=== PATIENT | male | born 1955 | race African-American/Black ===

== ENCOUNTER 2018-11-18 21:14 | Emergency (ER) | payer MEDICARE ==
[2018-11-18] MEDS ORDERED: BUFFERED LIDOCAINE 10 ML SYRINGE SUBQ STA (21:25)
[2018-11-18] MEDS ORDERED: TETANUS/DIPHTHERIA/PERTUSSIS 0.5 ML SYRINGE IM ONE (21:25)
[2018-11-18 21:26] VITALS: BP 167/77
--- NOTE | 2018-11-18 21:26 | ED Physician Documentation ---
PD HPI LOWER EXT INJURY - Stated complaint Stated Complaint: R LEG LAC - Chief complaint Chief Complaint: Laceration - History obtained from History obtained from: Patient - History of Present Illness PD HPI LOW EXT INJURY LOCATION: Right (Lacerated to the right anterior peterson by filing cabinet just prior to arrival.) Review of Systems Constitutional: denies: Fever, Chills Ears: reports: Reviewed and negative Throat: reports: Reviewed and negative PD PAST MEDICAL HISTORY - Past Medical History Cardiovascular: Hypertension, High cholesterol - Present Medications Home Medications: Ambulatory Orders Medication Instructions Recorded Confirmed Aspirin [Aspirin EC] 81 mg PO DAILY 11/18/18 11/18/18 Carvedilol [Coreg] 3.125 mg PO BID 11/18/18 11/18/18 Multivit-Min/FA/Lycopen/Lutein 1 each PO DAILY 11/18/18 11/18/18 [Centrum Silver Men Tablet] RX: Atorvastatin [Lipitor] 20 mg ORAL QPM 11/18/18 11/18/18 - Allergies Allergies/Adverse Reactions: Allergies Allergy/AdvReac Type Severity Reaction Status Date / Time No Known Drug Allergies Allergy Verified 11/18/18 21:19 PD ED PE NORMAL - Vitals Vital signs reviewed: Yes - General General: Alert and oriented X 3, No acute distress - Extremities Extremities: Other (3 cm inverted shallow V laceration to the anterior mid right peterson) - Neuro Neuro: Alert and oriented X 3, Normal speech Results - Vitals Vitals: Vital Signs - 24 hr 11/18/18 21:17 Temperature 36.8 C Heart Rate 66 Respiratory 17 Rate Blood Pressure 167/77 H O2 Saturation 98 Oxygen O2 Source Room air Procedures - Laceration (location) R peterson Length in cm: 3 Wound type: Curved, Flap, Superficial, Into subcut fat Anesthesia: Lidocaine 1%, With bicarb Wound Preparation: Irrigated copiously NS Skin layer closure: Nylon, Interrupted, Size #-0 - enter number (4-0), Sutures - enter # (8) Other: Patient tolerated well, No complications, Neurovascular intact, Dressing applied, Tetanus booster given Complexity: Simple Departure - Departure Disposition: 01 Home, Self Care Clinical Impression: Laceration Condition: Good Record reviewed to determine appropriate education?: Yes Instructions: ED Laceration All Comments: Come back for any signs of infection which would include: Redness, swelling, drainage, increased pain, or fevers. You can wash it soap and water. Keep it covered and moist with bacitracin ointment which is available over the counter; avoid neosporin. Follow-up with your physician in 14 days for suture removal. Your blood pressure was elevated today on check into the emergency department. This does not mean that you have hypertension, it is a common phenomenon to come to the emergency department and have elevated blood pressure. I recommend that you see your primary care physician within the week to have it rechecked when you are feeling better. Discharge Date/Time: 11/18/18 21:50
[2018-11-18] MEDS ORDERED: BUFFERED LIDOCAINE 10 ML SYRINGE ONE (21:33)
== END 2018-11-18 21:50 | disposition home or self-care (01) ==
LOC: ED 21:14
DX: S81.811A Laceration without foreign body, right lower leg, initial encounter (principal); W20.8XXA Other cause of strike by thrown, projected or falling object, initial encounter; Y93.89 Activity, other specified; I10 Essential (primary) hypertension
CPT/HCPCS: 12002; 90471; 99282